=== PATIENT | female | born 1980 | race Caucasian/White ===

== ENCOUNTER 2024-07-25 06:24 | Day surgery (SDC) | payer OTHER, SELFPAY | END 2024-07-25 12:22 | disposition home or self-care (01) | LOC: GI 06:24 | PROVIDERS: ATTENDING PHYSICIAN Surgery; FAMILY PHYSICIAN Family Medicine | DX: K62.5 Hemorrhage of anus and rectum (principal); K64.9 Unspecified hemorrhoids; K57.30 Diverticulosis of large intestine without perforation or abscess without bleeding; D12.0 Benign neoplasm of cecum; K63.5 Polyp of colon | CPT/HCPCS: 45385; 45380; 88305 ==

== ENCOUNTER 2024-09-20 06:29 | Day surgery (SDC) | payer OTHER, SELFPAY ==
[2024-09-12 11:36] LABS: Hematocrit 38.4 % (37.0-47.0); Hemoglobin 13.2 g/dL (12.0-16.0); Mean Corp Hgb Conc. 34.4 g/dL (33.0-37.0); Mean Corpuscular Volume 90.6 fL (81.0-99.0); Nucleated Red Blood Cells % 0 %; Platelet Count 187 10^3/uL (130-400); Red Cell Dist. Width 13.0 % (11.5-14.5)
[2024-09-12 12:11] LABS: Blood Urea Nitrogen 8 mg/dl (7-17); Calcium 9.1 mg/dl (8.4-10.2); Carbon Dioxide 25 mmol/L (22-30); Chloride 109 mmol/L (98-107); Glucose 90 mg/dl (70-99); Potassium 4.5 mmol/L (3.5-5.1); Sodium 142 mmol/L (135-145); eGFR > 60.00
[2024-09-12 12:20] LABS: Beta HCG Quantitative < 2.39 mIU/ml
[2024-09-12 14:16] VITALS: BMI 20.8
[2024-09-20] VITALS (9 sets, daily range): BP systolic 91–138; BP diastolic 54–75; BMI 20.8
[2024-09-20] MEDS: NORMOSOL-R/PLASMALYTE-A 1000 IV (09:27)
[2024-09-20] MEDS: CELEBREX 200 MG PO (09:38)
[2024-09-20] MEDS: TYLENOL 1000 MG PO (09:38)
--- NOTE | 2024-09-20 12:33 | W.IMMPOSTOP ---
Surgical Immed Post Op Note
-
Primary Surgeon: Eduardo Gongora MD
Assisting Surgeon: None
Pre-op Diagnosis: Internal hemorrhoids, menorrhagia
Post-op Diagnosis: Internal hemorrhoids, menorrhagia
Procedure Performed: Exam under anesthesia, transanal hemorrhoidal dearterialization x 3, bilateral pudendal nerve block; hysteroscopy with D&C by Dr. Piña
Anesthesia Type: Sedation with local
Specimen / Cultures: None
Estimated Blood Loss: 5 mL
Complications: None
Operative Findings: Small to moderate internal hemorrhoids in the left posterior and right posterior position, each with a small to moderate external component; small internal hemorrhoid in the right anterior position; performed THD to each internal
hemorrhoid
--- NOTE | 2024-09-20 12:47 | W.IMMPOSTOP ---
Surgical Immed Post Op Note
-
Primary Surgeon: Janeen Piña DO
Assisting Surgeon: none
Pre-op Diagnosis: menorrhagia
Post-op Diagnosis: same
Procedure Performed: Hysteroscopy D&C
Anesthesia Type: spinal , IV sedation Dr. Jones
Specimen / Cultures: 1. endocervical curettings 2. endometrial curettings
Estimated Blood Loss: 2ml
fluid deficit: 65mL
Complications: none
Operative Findings: Normal appearing endometrial cavity, bilateral tubal ostia seen. No evidence of polyp or mass. Moderate endometrial lining thickness.
Counts correct times 2.
Stable to recovery.
== END 2024-09-20 15:41 | disposition home or self-care (01) ==
LOC: SDS 06:29
PROVIDERS: ATTENDING PHYSICIAN Obstetrics & Gynecology; FAMILY PHYSICIAN Family Medicine; OTHER PHYSICIAN Surgery
DX: N85.8 Other specified noninflammatory disorders of uterus (principal); N92.0 Excessive and frequent menstruation with regular cycle
CPT/HCPCS: 58558; 36415; 80048; 84702; 85025; 86850; 86900; 86901; 88305